=== PATIENT | male | born 1980 | race Two or more races ===

== ENCOUNTER 2019-11-06 22:10 | Emergency (ER) | payer MEDICAID ==
[~2019-11-06] VITALS: Ht 185.4 cm; Wt 127.3 kg
[2019-11-06] MEDS ORDERED: KETOROLAC TROMETHAMINE 30 MG/ML VIAL IM ONE (22:45)
[2019-11-06] MEDS ORDERED: AMOX TR/POT CLAV 875 MG/125 MG TABLET PO ONE (22:45)
[2019-11-06] MEDS ORDERED: PERTUSS(ACELL),DIPH,TET VAC/PF 0.5 ML VIAL IM ONE (22:45)
[2019-11-06] MEDS ORDERED: LIDOCAINE 1% 10 ML VIAL INJ ONE (22:45)
[2019-11-06] MEDS ORDERED: BACITRACIN 0.9 GM PACKET OINTMENT TP ONE (23:30)
[2019-11-07 00:38] VITALS: BP 133/95
== END 2019-11-07 01:14 | disposition home or self-care (01) ==
LOC: EMS 22:10
DX: S51.811A Laceration without foreign body of right forearm, initial encounter (principal); S61.235A Puncture wound without foreign body of left ring finger without damage to nail, initial encounter; F17.210 Nicotine dependence, cigarettes, uncomplicated; F12.90 Cannabis use, unspecified, uncomplicated; W54.0XXA Bitten by dog, initial encounter; Y93.89 Activity, other specified; Y92.89 Other specified places as the place of occurrence of the external cause; Y99.8 Other external cause status
CPT/HCPCS: 12002; 73090; 73130; 90471; 90715; 96372; 99284; J1885; J3490

== ENCOUNTER 2024-09-11 15:50 | Inpatient (IN) | payer MEDICAID, OTHER ==
[~2024-09-11] VITALS: Ht 188 cm; Wt 136.7 kg
[2024-09-11 16:16] LABS: BASOPHILS % (AUTO) 1.3 % (0.0-2.0); EOSINOPHILS % (AUTO) 1.3 % (1.0-6.0); HEMOGLOBIN 17.6 g/dL (13.5-17.5); LYMPHOCYTES # (AUTO) 3.4 K/uL (1.0-4.8); LYMPHOCYTES % (AUTO) 37.3 % (22.0-44.0); MEAN CORPUSCULAR HEMOGLOBIN 29.1 pg (26.0-34.0); MEAN CORPUSCULAR HGB CONC 32.6 G/dL (31.0-37.0); MEAN CORPUSCULAR VOLUME 89 fL (80-100); MONOCYTES % (AUTO) 10.6 % (2.0-9.0); NEUTROPHILS # (AUTO) 4.5 K/uL (1.8-7.7); NEUTROPHILS % (AUTO) 49.5 % (40.0-70.0); PLATELET COUNT (AUTO) 242 K/uL (150-450); RED BLOOD CELL COUNT(AUTO) 6.05 MIL/uL (4.50-5.90); RED CELL DISTRIBUTION WIDTH 15.3 % (11.5-14.5); WHITE BLOOD COUNT (AUTO) 9.1 K/uL (4.5-11.0)
[2024-09-11 16:17] LABS: ANION GAP 12 mmol/L (8-16); CALCIUM, TOTAL 8.9 mg/dL (8.8-10.5); CARBON DIOXIDE 24 mmol/L (22-29); CHLORIDE 105 mmol/L (98-107); CREATININE 1.24 mg/dL (0.60-1.30); GLOMERULAR FILTR. RATE CALC > 60 mL/min (>60); GLUCOSE,RANDOM 106 mg/dL (70-110); POTASSIUM 4.5 mmol/L (3.5-5.1); SODIUM SERUM 141 mmol/L (136-145); UREA NITROGEN, BLOOD 18 mg/dL (7-18)
[2024-09-11 16:21] LABS: ABG BASE EXCESS -7.6 mmol/L (-2.0-3.0); ABG CARBOXYHEMOGLOBIN 0.9 % (0.5-1.5); ABG HCO3 20.3 mmol/L (21.0-28.0); ABG METHEMOGLOBIN 0.7 % (0.0-1.5); ABG OXYGEN CONTENT 21.6 mL/dL (15.0-23.0); ABG OXYGEN SATURATION 90.5 % (94.0-98.0); ABG OXYHEMOGLOBIN 89.1 % (94.0-98.0); ABG PCO2 23 mmHg (32.0-48.0); ABG PH 7.469 (7.350-7.450); ABG TOTAL HEMOGLOBIN 17.3 G/dL (13.5-17.5); ALLEN TEST, BLOOD GAS Positive; O2 DEVICE,BLOOD GAS CANNULA (ROOM AIR); PO2, ARTERIAL BG 54.8 mmHg (83.0-108.0); SITE, BLOOD GAS LFT RADIAL; SOURCE, BLOOD GAS ARTERIAL
[2024-09-11 16:24] LABS: ALANINE AMINOTRANSFERASE 38 U/L (12-78); ALBUMIN 3.4 g/dL (3.4-5.0); ALKALINE PHOSPHATASE 109 U/L (46-116); ASPARTATE AMINOTRANSFERASE 29 U/L (15-37); BILIRUBIN,TOTAL 2.3 mg/dL (0.1-1.0); CREATINE KINASE, TOTAL ONLY 69 U/L (39-308); TOTAL PROTEIN, SERUM 7.4 g/dL (6.4-8.2)
[2024-09-11 16:28] LABS: ALCOHOL, BLOOD (SERUM) < 3 mg/dL (0-10); TROPONIN I-HIGH SENSITIVITY 81 ng/L (<76)
[2024-09-11 16:29] LABS: B-TYPE NATRIURETIC PEPTIDE 180 pg/mL (0-100)
[2024-09-11 16:35] LABS: COVID AG,FIA SOURCE NASAL SWAB
[2024-09-11] MEDS ORDERED: SODIUM CHLORIDE 0.9% 100 ML ONE (16:48)
[2024-09-11] MEDS ORDERED: 0.9% SODIUM CHLORIDE 10 ML SYRINGE IVP ONE (16:48)
[2024-09-11] MEDS ORDERED: IOHEXOL 350 MG/ML 100 ML VIAL ONE (16:48)
[2024-09-11 16:57] LABS: INFLUENZA TYPE A NEGATIVE FOR TYPE A (NEGATIVE); INFLUENZA TYPE B NEGATIVE FOR TYPE B (NEGATIVE); SARS-COV2 (COVID) ANTIGEN,FIA Negative (Negative)
[2024-09-11] MEDS: ASPIRIN 325 MG TABLET PO ONE (17:13)
[2024-09-11] MEDS: FUROSEMIDE 20 MG/2 ML VIAL IVP ONE (18:03)
[2024-09-11 18:35] LABS: TROPONIN I-HIGH SENSITIVITY 92 ng/L (<76)
[2024-09-11 19:19] LABS: APPEARANCE,URINE CLEAR (CLEAR); BILIRUBIN,URINE NEGATIVE (NEGATIVE); COLOR,URINE COLORLESS (YELLOW); GLUCOSE, URINE (UA) NEGATIVE (NEGATIVE); KETONES,URINE NEGATIVE (NEGATIVE); LEUKOCYTE ESTERASE ,URINE NEGATIVE (NEGATIVE); NITRATE,URINE NEGATIVE (NEGATIVE); OCCULT BLOOD,URINE NEGATIVE (NEGATIVE); PROTEIN,URINE NEGATIVE (NEGATIVE); SPECIFIC GRAVITIY, URINE 1.017 (1.003-1.030); UROBILINOGEN,URINE <=1.0 mg/dL (<=1.0)
[2024-09-11 19:24] LABS: ALCOHOL, URINE DRUG SCREEN NEGATIVE (NEGATIVE); AMPHET/METH SCREEN,URINE POSITIVE (NEGATIVE); BARBITURATE SCREEN, URINE NEGATIVE (NEGATIVE); BENZODIAZEPINES SCREEN,URINE NEGATIVE (NEGATIVE); CANNABINOID SCREEN,URINE POSITIVE (NEGATIVE); COCAINE SCREEN,URINE NEGATIVE (NEGATIVE); METHADONE SCREEN, URINE NEGATIVE (NEGATIVE); OPIATE SCREEN,URINE NEGATIVE (NEGATIVE); PHENCYCLIDINE SCREEN,URINE NEGATIVE (NEGATIVE)
[2024-09-11] MEDS ORDERED: HYDROCODONE/ACETAMINOPHEN 5-325 MG TABLET PO PRN (20:15)
[2024-09-11] MEDS ORDERED: ALBUTEROL SULFATE 2.5 MG/0.5 ML NEB SOLUTION NEB PRN (20:15)
[2024-09-11] MEDS ORDERED: ONDANSETRON HCL 4 MG/2 ML VIAL IVP PRN (20:15)
[2024-09-11] MEDS ORDERED: IPRATROPIUM BROMIDE 0.5 MG/2.5 ML NEB SOLUTION NEB PRN (20:15)
[2024-09-11] MEDS ORDERED: MAGNESIUM HYDROXIDE SUSPENSION 30 ML UDCUP PO PRN (20:15)
[2024-09-11] MEDS ORDERED: MORPHINE SULFATE 2 MG/ML SYRINGE IVP PRN (20:15)
[2024-09-11] MEDS ORDERED: BISACODYL 10 MG RECTAL RECTAL SUPPOSITORY PR PRN (20:15)
[2024-09-11] MEDS ORDERED: ACETAMINOPHEN 325 MG TABLET PO PRN (20:15)
[2024-09-11] MEDS: DOCUSATE SODIUM 100 MG CAPSULE PO SCH (20:19)
[2024-09-11 20:29] VITALS: PULSE 89; RESP 18; O2SAT 93
[2024-09-11 22:15] VITALS: BP 127/96; PULSE 116; RESP 20; TEMP 97.9; O2SAT 96
[2024-09-11] MEDS: HEPARIN SODIUM,PORCINE 5,000 UNITS/ML VIAL SQ SCH (23:14)
[2024-09-11] MEDS: ZOLPIDEM TARTRATE 5 MG TABLET PO PRN (23:14)
[2024-09-11 23:29] VITALS: BP 117/97; PULSE 113; RESP 19; TEMP 97.9; O2SAT 97
[2024-09-12 04:00] VITALS: BP 139/99; PULSE 107; RESP 20; TEMP 97.3; O2SAT 95
[2024-09-12 07:07] LABS: ANION GAP 13 mmol/L (8-16); CALCIUM, TOTAL 8.8 mg/dL (8.8-10.5); CARBON DIOXIDE 22 mmol/L (22-29); CHLORIDE 103 mmol/L (98-107); CREATININE 1.13 mg/dL (0.60-1.30); GLOMERULAR FILTR. RATE CALC > 60 mL/min (>60); GLUCOSE,RANDOM 99 mg/dL (70-110); POTASSIUM 5.6 mmol/L (3.5-5.1); SODIUM SERUM 138 mmol/L (136-145); UREA NITROGEN, BLOOD 21 mg/dL (7-18)
[2024-09-12 07:16] LABS: EOSINOPHILS % (AUTO) 1.7 % (1.0-6.0); HEMATOCRIT 51.9 % (41-53); HEMOGLOBIN 16.9 g/dL (13.5-17.5); LYMPHOCYTES # (AUTO) 4.2 K/uL (1.0-4.8); LYMPHOCYTES % (AUTO) 41.6 % (22.0-44.0); MEAN CORPUSCULAR HEMOGLOBIN 29.1 pg (26.0-34.0); MEAN CORPUSCULAR HGB CONC 32.6 G/dL (31.0-37.0); MEAN CORPUSCULAR VOLUME 89 fL (80-100); MONOCYTES % (AUTO) 9.8 % (2.0-9.0); NEUTROPHILS # (AUTO) 4.7 K/uL (1.8-7.7); NEUTROPHILS % (AUTO) 45.9 % (40.0-70.0); PLATELET COUNT (AUTO) 232 K/uL (150-450); RED BLOOD CELL COUNT(AUTO) 5.81 MIL/uL (4.50-5.90); RED CELL DISTRIBUTION WIDTH 15.2 % (11.5-14.5); WHITE BLOOD COUNT (AUTO) 10.2 K/uL (4.5-11.0)
[2024-09-12 07:28] LABS: CHOL/HDL RATIO 3.4 (4.2-7.3)
[2024-09-12 07:54] LABS: TROPONIN I-HIGH SENSITIVITY 88 ng/L (<76)
[2024-09-12 08:18] VITALS: BP 126/98; PULSE 104; RESP 18; TEMP 98; O2SAT 97
[2024-09-12] MEDS: FUROSEMIDE 20 MG/2 ML VIAL IVP SCH (09:14)
[2024-09-12] MEDS: ASPIRIN 81 MG CHEWABLE TABLET PO SCH (09:15)
[2024-09-12] MEDS: PANTOPRAZOLE SODIUM 40 MG/VIAL IVP SCH (09:15)
[2024-09-12 11:47] VITALS: BP 122/102; PULSE 111; RESP 18; TEMP 97.7; O2SAT 96
[2024-09-12] MEDS: LORazepam 2 MG/ML VIAL IVP PRN (14:08)
[2024-09-12 16:47] VITALS: BP 135/99; PULSE 103; RESP 18; TEMP 97.3; O2SAT 97
[2024-09-12 20:00] VITALS: BP 134/100; PULSE 111; RESP 18; TEMP 98; O2SAT 96
[2024-09-12] MEDS: carvediloL 3.125 MG TABLET PO SCH (20:57)
[2024-09-12 23:45] VITALS: BP 117/92; PULSE 101; RESP 18; TEMP 97.9; O2SAT 95
[2024-09-13] VITALS (7 sets, daily range): BP systolic 112–141; BP diastolic 83–109; PULSE 92–110; RESP 18–20; TEMP 97.5–98.2; O2SAT 89–100
[2024-09-13 06:55] LABS: BASOPHILS % (AUTO) 4.1 % (0.0-2.0); EOSINOPHILS % (AUTO) 2.8 % (1.0-6.0); HEMATOCRIT 49.9 % (41-53); HEMOGLOBIN 16.5 g/dL (13.5-17.5); LYMPHOCYTES # (AUTO) 2.3 K/uL (1.0-4.8); LYMPHOCYTES % (AUTO) 30.7 % (22.0-44.0); MEAN CORPUSCULAR HEMOGLOBIN 29.6 pg (26.0-34.0); MEAN CORPUSCULAR HGB CONC 33.1 G/dL (31.0-37.0); MEAN CORPUSCULAR VOLUME 89 fL (80-100); MONOCYTES # (AUTO) 0.8 K/uL (0.1-1.0); MONOCYTES % (AUTO) 10.5 % (2.0-9.0); NEUTROPHILS # (AUTO) 3.8 K/uL (1.8-7.7); NEUTROPHILS % (AUTO) 51.9 % (40.0-70.0); PLATELET COUNT (AUTO) 229 K/uL (150-450); RED BLOOD CELL COUNT(AUTO) 5.59 MIL/uL (4.50-5.90); WHITE BLOOD COUNT (AUTO) 7.4 K/uL (4.5-11.0)
[2024-09-13 07:02] LABS: ANION GAP 10 mmol/L (8-16); CARBON DIOXIDE 26 mmol/L (22-29); CHLORIDE 102 mmol/L (98-107); CREATININE 1.28 mg/dL (0.60-1.30); GLUCOSE,RANDOM 125 mg/dL (70-110); POTASSIUM 4.4 mmol/L (3.5-5.1); SODIUM SERUM 138 mmol/L (136-145); UREA NITROGEN, BLOOD 19 mg/dL (7-18)
[2024-09-13 07:03] LABS: CALCIUM, TOTAL 8.5 mg/dL (8.8-10.5); GLOMERULAR FILTR. RATE CALC > 60 mL/min (>60)
[2024-09-13] MEDS: FUROSEMIDE 20 MG/2 ML VIAL IVP SCH (20:43)
[2024-09-14] VITALS (8 sets, daily range): BP systolic 122–138; BP diastolic 93–108; PULSE 92–109; RESP 12–24; TEMP 97.5–98.4; O2SAT 90–95
[2024-09-15] VITALS: BP 129/85; PULSE 88; RESP 20; TEMP 97.3; O2SAT 94
[2024-09-15 04:40] VITALS: BP 124/91; PULSE 80; RESP 20; TEMP 97.3; O2SAT 94
[2024-09-15] MEDS: HydrOXYzine HCL 25 MG TABLET PO PRN (04:49)
[2024-09-15 08:32] VITALS: BP 129/97; PULSE 102; RESP 20; TEMP 98.1; O2SAT 98
[2024-09-15 11:21] VITALS: BP 123/87; PULSE 86; RESP 19; TEMP 97.8; O2SAT 97
[2024-09-15 15:33] VITALS: BP 139/105; PULSE 88; RESP 20; TEMP 97.7; O2SAT 94
[2024-09-15 20:00] VITALS: BP 129/95; PULSE 110; RESP 20; TEMP 98.4; O2SAT 95
[2024-09-16] VITALS: BP 133/102; PULSE 103; RESP 20; TEMP 97.9; O2SAT 93
[2024-09-16 04:15] VITALS: BP 131/92; PULSE 107; RESP 20; TEMP 97.5; O2SAT 93
[2024-09-16 06:30] LABS: HEMATOCRIT 50.4 % (41-53); HEMOGLOBIN 16.5 g/dL (13.5-17.5); LYMPHOCYTES # (AUTO) 3.2 K/uL (1.0-4.8); LYMPHOCYTES % (AUTO) 39.7 % (22.0-44.0); MEAN CORPUSCULAR HEMOGLOBIN 29.2 pg (26.0-34.0); MEAN CORPUSCULAR HGB CONC 32.8 G/dL (31.0-37.0); MEAN CORPUSCULAR VOLUME 89 fL (80-100); MONOCYTES # (AUTO) 0.9 K/uL (0.1-1.0); MONOCYTES % (AUTO) 10.9 % (2.0-9.0); NEUTROPHILS # (AUTO) 3.7 K/uL (1.8-7.7); NEUTROPHILS % (AUTO) 46.4 % (40.0-70.0); PLATELET COUNT (AUTO) 225 K/uL (150-450); RED BLOOD CELL COUNT(AUTO) 5.65 MIL/uL (4.50-5.90); RED CELL DISTRIBUTION WIDTH 14.8 % (11.5-14.5)
[2024-09-16 06:34] LABS: CALCIUM, TOTAL 8.6 mg/dL (8.8-10.5); CREATININE 1.31 mg/dL (0.60-1.30)
[2024-09-16 07:13] VITALS: BP 124/97; PULSE 101; RESP 20; TEMP 98; O2SAT 91
[2024-09-16 09:32] LABS: SPECIMENTYPE,BODY FLUID THORAV
[2024-09-16] MEDS: FUROSEMIDE 20 MG/2 ML VIAL IVP SCH (10:00)
[2024-09-16 11:06] LABS: APPEARANCE,SPUN,BODY FLUID CLOUDY (CLEAR); APPEARANCE,UNSPUN,BODY FLUID BLOODY (CLEAR); COLOR,BODY FLUID RED (LT YELLOW); NEUTROPHILS,BODY FLUID 2 %; TOTAL VOLUME,BODY FLUID 550 mL; WBC, BODY FLUID 2125 /cu. mm.
[2024-09-16 11:07] LABS: BASOPHILS,BODY FLUID 0 %; EOSINOPHILS,BF (ANAL) 0 %; LYMPHOCYTES,BODY FLUID 85 %; MONOCYTES,BODY FLUID 8 %; OTHER CELLS,BODY FLUID 5
[2024-09-16 15:27] VITALS: BP 128/92; PULSE 95; RESP 18; TEMP 98; O2SAT 93
[2024-09-16 20:00] VITALS: BP 137/96; PULSE 94; RESP 18; TEMP 98.4; O2SAT 92
[2024-09-17] VITALS: BP 135/76; PULSE 110; RESP 18; TEMP 97.9; O2SAT 93
[2024-09-17 04:00] VITALS: BP 125/97; PULSE 106; RESP 16; TEMP 97.9; O2SAT 91
[2024-09-17 06:47] LABS: BASOPHILS % (AUTO) 0.7 % (0.0-2.0); EOSINOPHILS % (AUTO) 1.4 % (1.0-6.0); HEMATOCRIT 51.6 % (41-53); LYMPHOCYTES # (AUTO) 3.3 K/uL (1.0-4.8); LYMPHOCYTES % (AUTO) 41.2 % (22.0-44.0); MEAN CORPUSCULAR HEMOGLOBIN 29.3 pg (26.0-34.0); MEAN CORPUSCULAR VOLUME 89 fL (80-100); MONOCYTES # (AUTO) 0.8 K/uL (0.1-1.0); MONOCYTES % (AUTO) 9.8 % (2.0-9.0); NEUTROPHILS # (AUTO) 3.7 K/uL (1.8-7.7); NEUTROPHILS % (AUTO) 46.9 % (40.0-70.0); PLATELET COUNT (AUTO) 239 K/uL (150-450); RED BLOOD CELL COUNT(AUTO) 5.81 MIL/uL (4.50-5.90); RED CELL DISTRIBUTION WIDTH 15.1 % (11.5-14.5)
[2024-09-17 06:48] LABS: ANION GAP 8 mmol/L (8-16); CALCIUM, TOTAL 8.8 mg/dL (8.8-10.5); CARBON DIOXIDE 25 mmol/L (22-29); CHLORIDE 103 mmol/L (98-107); CREATININE 1.18 mg/dL (0.60-1.30); GLOMERULAR FILTR. RATE CALC > 60 mL/min (>60); GLUCOSE,RANDOM 119 mg/dL (70-110); POTASSIUM 3.9 mmol/L (3.5-5.1); SODIUM SERUM 136 mmol/L (136-145); UREA NITROGEN, BLOOD 19 mg/dL (7-18)
[2024-09-17 08:36] VITALS: BP 149/106; PULSE 106; RESP 17; TEMP 98.1; O2SAT 93
[2024-09-17 12:04] VITALS: BP 147/104; PULSE 114; RESP 19; TEMP 97.9; O2SAT 93
[2024-09-17 13:07] LABS: TOTAL PROTEIN,BODY FLUID,REF 4.5 g/dL
[2024-09-17] MEDS ORDERED: AmLODIPine BESYLATE 5 MG TABLET PO SCH (13:30)
[2024-09-17] MEDS ORDERED: carvediloL 6.25 MG TABLET PO SCH (21:00)
== END 2024-09-17 14:23 | disposition left against medical advice (07) | DRG 133 ==
LOC: EMS 15:57 → EDH 17:58 → 5S 22:12
PROVIDERS: ADMIT Hospitalist; ATTEND Hospitalist
PROC: 5A09357 Assistance with Respiratory Ventilation, Less than 24 Consecutive Hours, Continuous Positive Airway Pressure (ICD-10-PCS; 2024-09-14)
PROC: 5A0935A Assistance with Respiratory Ventilation, Less than 24 Consecutive Hours, High Flow/Velocity Cannula (ICD-10-PCS; 2024-09-14)
PROC: 5A0935A Assistance with Respiratory Ventilation, Less than 24 Consecutive Hours, High Flow/Velocity Cannula (ICD-10-PCS; 2024-09-15)
PROC: 05HB33Z Insertion of Infusion Device into Right Basilic Vein, Percutaneous Approach (ICD-10-PCS; 2024-09-15)
PROC: 0W993ZZ Drainage of Right Pleural Cavity, Percutaneous Approach (ICD-10-PCS; principal; 2024-09-16)
PROC: 5A0935A Assistance with Respiratory Ventilation, Less than 24 Consecutive Hours, High Flow/Velocity Cannula (ICD-10-PCS; 2024-09-16)
DX: J96.01 Acute respiratory failure with hypoxia (principal); I50.33 Acute on chronic diastolic (congestive) heart failure; I27.29 Other secondary pulmonary hypertension; J91.8 Pleural effusion in other conditions classified elsewhere; I11.0 Hypertensive heart disease with heart failure; E87.5 Hyperkalemia; Z20.822 Contact with and (suspected) exposure to COVID-19; F15.10 Other stimulant abuse, uncomplicated; E66.01 Morbid (severe) obesity due to excess calories; R23.0 Cyanosis; G47.9 Sleep disorder, unspecified; I07.1 Rheumatic tricuspid insufficiency; I50.82 Biventricular heart failure; Z53.29 Procedure and treatment not carried out because of patient's decision for other reasons; F17.210 Nicotine dependence, cigarettes, uncomplicated; Z91.199 Patient's noncompliance with other medical treatment and regimen due to unspecified reason; Z68.38 Body mass index [BMI] 38.0-38.9, adult
CPT/HCPCS: 32555; 36245; 36569; 71045; 71275; 76937; 76942; 80048; 80061; 80076; 80307; 81003; 82465; 82550; 82805; 82945; 83615; 83735; 83880; 83986; 84157; 84443; 84484; 85025; 85610; 85730; 87015; 87075; 87101; 87205; 87206; 87804; 88108; 88305; 89051; 93005; 93306; 93925; 93970; 94660; 99285; G0480; J1644; J1940; J2060; J2470; J7050; 36415-L1; 36415-TC; 87070